=== PATIENT | male | born 1995 | race Hispanic/Latino ===

== ENCOUNTER 2022-09-01 22:23 | Emergency (ER) | payer OTHER, SELFPAY ==
[2022-09-01 22:27] VITALS: BP 151/101; PULSE 101; RESP 21; TEMP 36.9; O2SAT 98; BMI 161.7
--- NOTE | 2022-09-01 22:30 | DI.RAD.S_ITS ---
PROCEDURE: XR CHEST 1V INDICATIONS: chest pain TECHNIQUE: One view of the chest was acquired. COMPARISON: None. FINDINGS: Surgical changes and devices: None. Lungs and pleura: Lungs are difficult to accurately assess due to prominently reduced inspiratory volume. No pleural effusions or pneumothorax. Mediastinum: Mediastinal contours appear normal. Heart size is normal. Bones and chest wall: No suspicious bony lesions. Overlying soft tissues appear unremarkable. IMPRESSION: Prominently reduced inspiratory volume, no acute disease when this is taken into account. Dictated by: Elmo Penn M.D. on 09/01/2022 at 22:47 Approved by: Elmo Penn M.D. on 09/01/2022 at 22:48
[2022-09-01] MEDS: ASPIRIN 81 MG CHEW TAB 324 MG PO (22:44)
[2022-09-01 23:04] VITALS: BP 138/86; PULSE 100; O2SAT 98
[2022-09-01 23:18] LABS: Add Manual Diff / Slide Review NO; Basophils Absolute Auto 100 /uL (0-100); Basophils Percent Auto 0.7 % (0-2); Eosinophils Absolute Auto 300 /uL (0-450); Eosinophils Percent Auto 2.8 % (2-4); Hematocrit 44.5 % (41-53); Hemoglobin 15.8 g/dL (13.5-17.5); INR 1.1 (0.9-1.3); Lymphocytes Absolute Auto 2000 /uL (1100-4500); Lymphocytes Percent Auto 20.5 % (25-40); Mean Corpuscular HGB Conc 35.5 % (30-36); Mean Corpuscular Hemoglobin 30.6 PG (26-34); Mean Corpuscular Volume 86.3 fL (80-100); Monocytes Absolute Auto 500 /uL (0-900); Monocytes Percent Auto 5.5 % (3-14); Neutrophils Absolute Auto 6800 /uL (1500-7000); Neutrophils Percent Auto 70.5 % (50-75); Platelet Count 261 X10^3/uL (150-400); Prothrombin Time 12.9 SECONDS (10.1-12.7); Red Blood Cell Count 5.15 X10^6/uL (4.5-5.9); Red Cell Distribution Width 12.8 % (11.6-14.8); White Blood Cell Count 9.6 X10^3/uL (4.5-11.0)
[2022-09-01 23:21] LABS: PTT Partial Thromboplastin Tim 41 SECONDS (26-36)
[2022-09-01 23:23] LABS: Alanine Aminotransferase 140 IU/L (<50); Albumin 4.6 g/dL (3.5-5.0); Albumin Globulin Ratio 1.3 (1.0-2.8); Alkaline Phosphatase 99 U/L (38-126); Aspartate Aminotransferase 76 IU/L (17-59); BUN Creatinine Ratio 8.9 (6-22); Bilirubin Total 1.9 mg/dL (0.2-1.3); Blood Urea Nitrogen 7 mg/dL (9-20); Calcium 9.4 mg/dL (8.4-10.2); Carbon Dioxide 30 mmol/L (22-32); Chloride 99 mmol/L (98-107); Creatine Kinase 68 U/L (55-170); Estimated Glomerular Filt Rate > 60 mL/min (>60); Globulin 3.6 g/dL (1.7-4.1); Glucose 149 mg/dL (70-100); HEMOLYSIS < 15 (0-50); Lipase 95 U/L (23-300); Magnesium 1.8 mg/dL (1.6-2.3); Potassium 3.9 mmol/L (3.4-5.1); Sodium 138 mmol/L (137-145); Total Protein 8.2 g/dL (6.3-8.2)
[2022-09-01 23:30] VITALS: BP 158/85; PULSE 93; RESP 23; O2SAT 97
[2022-09-01 23:34] LABS: Troponin I < 0.012 ng/mL (0.01-0.034)
[2022-09-02] VITALS (8 sets, daily range): BP systolic 135–164; BP diastolic 59–87; PULSE 87–99; RESP 16–19; TEMP 36.5; O2SAT 96–99
--- NOTE | 2022-09-02 00:52 | DI.CT.S_ITS ---
PROCEDURE: CT ABDOMEN PELVIS W CON INDICATIONS: IV contrast only abdominal pain TECHNIQUE: After the administration of intravenous contrast, axial sections acquired from the lung bases to the pubic symphysis. Coronal and sagittal reformats were performed. For radiation dose reduction, the following was used: automated exposure control, adjustment of mA and/or kV according to patient size. COMPARISON: None. FINDINGS: Image quality: Excellent. Lung bases: Unremarkable. Heart: No significant findings. ABDOMEN: Liver: Fatty infiltrated diffusely, and moderately enlarged with a craniocaudad length of 24.6 cm.. Gallbladder: Normal. Biliary ducts: Unremarkable. Pancreas: Unremarkable. Spleen: Splenomegaly is present with the craniocaudad length of the spleen measuring up to 13.7 cm. Adrenal Glands: Unremarkable. Kidneys and Ureters: Unremarkable. Stomach and Bowel: Stomach, small bowel loops, and colon are unremarkable. Peritoneum: No abnormal intraperitoneal fluid. No free air. Ventral Wall: No hernias. Abdominal Nodes: No retroperitoneal or mesenteric adenopathy by size criteria. Vessels: Aorta and inferior vena cava are normal in size. PELVIS: Pelvic Organs: Unremarkable. Bladder: Unremarkable. Pelvic Nodes: No enlarged lymph nodes. Miscellaneous: No hernias are seen. Bones: Unremarkable. IMPRESSION: Hepatosplenomegaly, with fatty infiltration throughout the liver. No varices or ascites is associated. Dictated by: Elmo Penn M.D. on 09/02/2022 at 1:41 Approved by: Elmo Penn M.D. on 09/02/2022 at 1:43
--- NOTE | 2022-09-02 00:52 | DI.CT.S_ITS ---
PROCEDURE: CT ANGIO CHEST PE PROTOCOL INDICATIONS: Chest pain TECHNIQUE: After the administration of intravenous contrast, 2 mm thick sections acquired from the pulmonary apices to the posterior costophrenic angles. 3-dimensional maximum intensity projection (MIP) coronal and sagittal reformats were then acquired through the thorax. For radiation dose reduction, the following was used: automated exposure control, adjustment of mA and/or kV according to patient size. COMPARISON: None. FINDINGS: Image quality: Excellent. Pulmonary arteries: Pulmonary arteries are normal in size, and demonstrate no intraluminal filling defects to suggest central pulmonary embolism. Lungs and pleura: Lungs are clear. No pleural effusions or pneumothorax. Central and peripheral airways are patent. Mediastinum: Heart size is normal, without pericardial effusion. No mediastinal or hilar adenopathy. Thoracic aorta is normal in caliber and enhancement. Esophagus is normal in caliber, without hiatal hernia. Bones and chest wall: No suspicious bony lesions. Ribs and thoracic spine appear intact throughout. Thyroid gland appears normal. No axillary or supraclavicular adenopathy. Abdomen: Visualized upper abdominal solid organs appear normal in the early arterial phase of enhancement except at the liver which appears diffusely fatty infiltrated to a moderate degree. IMPRESSION: Source of midsternal chest pain is not found, but there is fatty infiltration throughout the liver that is moderate in severity. No varices or ascites is associated. Dictated by: Elmo Penn M.D. on 09/02/2022 at 1:39 Approved by: Elmo Penn M.D. on 09/02/2022 at 1:41
--- NOTE | 2022-09-02 00:53 | ED_ITS ---
HPI - Chest Pain General Chief Complaint: Chest Pain Stated Complaint: Chest pain and lightheadness Time Seen by Provider: 09/02/22 00:03 Source: patient Mode of arrival: Ambulatory Limitations: no limitations History of Present Illness HPI narrative: Patient here for complaints of reproducible substernal chest pain sharp pain with deep breath for the past 2 days. Patient seen at [facility] Emergency Department in the last 48 hours for the same complaint. EKG and chest x-ray and troponin are reassuring. Patient has low heart risk factors. Blood pressure has improved since arrival. Patient denies any recent illness no cough cold congestion fever chills. Patient denies any family history of heart attack strokes blood clots in legs or lungs or aneurysms in the chest or dissection. Patient has low heart risk factors. He does smoke. Heart score of 1. Patient is in no distress at this time. Denies any nausea sweating or dyspnea. No syncope. No dizziness. Patient states he has been told in the past he has elevated liver enzymes. Denies any regular alcohol use. Patient states not been worked up for this elevated liver enzymes. Patient denies any abdominal pain Related Data Previous Rx's Medication Instructions Recorded ibuprofen 800 mg tablet 800 mg PO Q8H PRN pain #20 tabs 09/02/22 Allergies Allergy/AdvReac Type Severity Reaction Status Date / Time No Known Drug Allergies Allergy Verified 09/01/22 22:27 Review of Systems Review of Systems Narrative: GENERAL: negative chills, fatigue, malaise, fever, sweats. HEENT: negative sinus pain, ear pain, sore throat RESPIRATORY: negative dyspnea, cough CARDIOVASCULAR: Positive chest pain, negative palpitations GASTROINTESTINAL: negative nausea, vomiting, abdominal pain : negative dysuria, frequency, hematuria MUSCULOSKELETAL: negative muscle or bony pain SKIN: negative rash, skin lesions NEUROLOGIC: negative weakness, numbness ROS Unobtainable: All systems reviewed & are unremarkable except as noted in HPI and below Patient History Social History Smoking Status: Current every day smoker Smoking Status: Current every day smoker Substance Use Type: does not use Exam Narrative Exam Narrative: GENERAL: in no distress, not toxic not dyspneic HEAD: Normocephalic. EYES: Pupils equal round ENT: Mucous membranes moist. NECK: Trachea midline. CARDIOVASCULAR: Regular rate and rhythm without murmurs RESPIRATORY: Clear to auscultation. Breath sounds equal bilaterally. No wheezes, rales, or rhonchi. Patient does have reproducible substernal pain with deep breath. GASTROINTESTINAL: Abdomen soft, non-tender EXTREMITIES: No gross deformities. BACK: No flank tenderness. NEURO: AOx4. SKIN: Warm and dry PSYCH: Not anxious, is cooperative Initial Vital Signs Initial Vital Signs: Vital Signs Temperature 98.4 F 09/01/22 22:27 Pulse Rate 101 H 09/01/22 22:27 Respiratory Rate 21 09/01/22 22:27 Blood Pressure 151/101 H 09/01/22 22:27 Pulse Oximetry 98 09/01/22 22:27 Oxygen Delivery Method Room Air 09/01/22 22:27 Scores HEART Score Heart Score history: Slightly Suspicious Heart Score EKG: Normal Heart Score Age: < 45 years old Heart Score risk factors: 1-2 risk factors Heart Score troponin: < or = to normal limit Heart Score Total: 1 Course Orders Ordered: ED Orders 09/01/22 22:30 XR chest 1V Stat EKG-12 Lead Stat 09/01/22 23:00 Complete Blood Count AUTO DIFF Stat Comprehensive Metabolic Panel Stat Lipase Stat Magnesium Stat PTT Partial Thromboplastin Jayme Stat Prothrombin Time INR Stat Troponin & CK Cardiac Panel Stat 09/02/22 00:52 CT abdomen pelvis w con Stat CT angio chest PE protocol Stat Discontinued Medications Aspirin (Aspirin 81 Mg Chew Tab) 324 mg PO NOW ONE Stop: 09/01/22 22:31 Last Admin: 09/01/22 22:44 Dose: 324 mg Documented By: CASANDRA Sodium Chloride (Normal Saline 0.9%) 1,000 mls @ 1,000 mls/hr IV BOLUS ONE Stop: 09/02/22 01:51 Last Infusion: 09/02/22 02:06 Dose: 0 mls/hr Documented By: Admin: 09/02/22 01:00 Dose: 1,000 mls/hr Documented By: RAJ Ketorolac Tromethamine (Ketorolac 30 Mg/Ml Vial) 15 mg IV NOW ONE Stop: 09/02/22 01:01 Last Admin: 09/02/22 01:21 Dose: 15 mg Documented By: RAJ Vital Signs Vital signs: Vital Signs - 8 hr 09/01/22 22:27 09/01/22 23:04 09/01/22 23:04 Temperature 98.4 F Pulse Rate 101 H 100 H Respiratory Rate 21 Blood Pressure 151/101 H 138/86 Pulse Oximetry 98 98 Oxygen Delivery Method Room Air 09/01/22 23:30 09/01/22 23:30 09/02/22 00:00 Temperature Pulse Rate 93 H Respiratory Rate 23 Blood Pressure 158/85 H 152/77 H Pulse Oximetry 97 Oxygen Delivery Method 09/02/22 00:00 09/02/22 00:30 09/02/22 00:30 Temperature Pulse Rate 91 H 99 H Respiratory Rate 17 18 Blood Pressure 153/87 H Pulse Oximetry 97 99 Oxygen Delivery Method 09/02/22 01:00 09/02/22 01:00 09/02/22 01:30 Temperature Pulse Rate 98 H 95 H Respiratory Rate 18 19 Blood Pressure 151/84 H Pulse Oximetry 97 96 Oxygen Delivery Method 09/02/22 01:31 09/02/22 01:31 09/02/22 02:00 Temperature Pulse Rate 95 H Respiratory Rate 17 Blood Pressure 150/59 H 135/79 Pulse Oximetry 96 Oxygen Delivery Method 09/02/22 02:00 09/02/22 02:30 09/02/22 02:30 Temperature Pulse Rate 87 91 H Respiratory Rate 16 19 Blood Pressure 164/84 H Pulse Oximetry 98 96 Oxygen Delivery Method 09/02/22 02:49 Temperature 97.7 F Pulse Rate Respiratory Rate Blood Pressure Pulse Oximetry Oxygen Delivery Method MDM - Chest Pain Lab Data 09/01/22 23:00 09/01/22 23:00 Labs: Lab Results 09/01/22 09/01/22 09/01/22 Range/Units 23:00 23:00 23:00 WBC 9.6 (4.5-11.0) X10^3/uL RBC 5.15 (4.5-5.9) X10^6/uL Hgb 15.8 (13.5-17.5) g/dL Hct 44.5 (41-53) % MCV 86.3 (80-100) fL MCH 30.6 (26-34) PG MCHC 35.5 (30-36) % RDW 12.8 (11.6-14.8) % Plt Count 261 (150-400) X10^3/uL Neut % (Auto) 70.5 (50-75) % Lymph % (Auto) 20.5 L (25-40) % [place] % (Auto) 5.5 (3-14) % Eos % (Auto) 2.8 (2-4) % Baso % (Auto) 0.7 (0-2) % Neut # (Auto) 6800 (0551-4757) /uL Lymph # (Auto) 2000 (7692-7729) /uL [place] # (Auto) 500 (0-900) /uL Eos # (Auto) 300 (0-450) /uL Baso # (Auto) 100 (0-100) /uL PT 12.9 H (10.1-12.7) SECONDS INR 1.1 (0.9-1.3) APTT 41 H (26-36) SECONDS Sodium 138 (137-145) mmol/L Potassium 3.9 (3.4-5.1) mmol/L Chloride 99 (98-107) mmol/L Carbon Dioxide 30 (22-32) mmol/L BUN 7 L (9-20) mg/dL Creatinine 0.79 (0.66-1.25) mg/dL Estimated GFR > 60 (>60) mL/min BUN/Creatinine Ratio 8.9 (6-22) Glucose 149 H (70-100) mg/dL Calcium 9.4 (8.4-10.2) mg/dL Magnesium 1.8 (1.6-2.3) mg/dL Total Bilirubin 1.9 H (0.2-1.3) mg/dL AST 76 H (17-59) IU/L ALT 140 H (<50) IU/L Alkaline Phosphatase 99 (38-126) U/L Total Creatine Kinase 68 (55-170) U/L Troponin I < 0.012 (0.01-0.034) ng/mL Total Protein 8.2 (6.3-8.2) g/dL Albumin 4.6 (3.5-5.0) g/dL Globulin 3.6 (1.7-4.1) g/dL Albumin/Globulin Ratio 1.3 (1.0-2.8) Lipase 95 (23-300) U/L Imaging Data Chest x-ray: Radiologist's Impression: [address] [address] XRay Report Signed Patient: Ai Calzada MR#: [id number] : 1995 Acct:[id number] Age/Sex: 27 / M Date of Service: 09/01/22 Loc: ED Accession Number: [id number] ?? Procedure: XR chest 1V Ordering Provider: Kevin Hanson MD PROCEDURE:? XR CHEST 1V ? INDICATIONS:? chest pain ? TECHNIQUE:? One view of the chest was acquired.? ? COMPARISON:? None. ? FINDINGS:? ? Surgical changes and devices:? None.? ? Lungs and pleura:? Lungs are difficult to accurately assess due to prominently reduced inspiratory volume.? No pleural effusions or pneumothorax.? ? Mediastinum:? Mediastinal contours appear normal.? Heart size is normal.? ? Bones and chest wall:? No suspicious bony lesions.? Overlying soft tissues appea r unremarkable.? ? IMPRESSION:? Prominently reduced inspiratory volume, no acute disease when this is taken into account. ? ? Dictated by: Elmo Penn M.D. on 09/01/2022 at 22:47 ? ? Approved by: Elmo Penn M.D. on 09/01/2022 at 22:48 ? CT scan - chest: Radiologist's Impression: [place] [address] CT Scan Report Signed Patient: Ai Calzada MR#: [id number] : 1995 Acct:[id number] Age/Sex: 27 / M Date of Service: 09/02/22 Loc: ED Accession Number: [id number] ?? Procedure: CT angio chest PE protocol Ordering Provider: Kevin Hanson MD PROCEDURE:? CT ANGIO CHEST PE PROTOCOL ? INDICATIONS:? Chest pain ? TECHNIQUE:? After the administration of intravenous contrast, 2 mm thick sections acquired from the pulmonary apices to the posterior costophrenic angles.? 3-dimensional maximum intensity projection (MIP) coronal and sagittal reformats were then acquired through the thorax.? For radiation dose reduction, the following was used:? automated exposure control, adjustment of mA and/or kV according to patient size.? ? COMPARISON:? None. ? FINDINGS:? Image quality:? Excellent.? ? Pulmonary arteries:? Pulmonary arteries are normal in size, and demonstrate no intraluminal filling defects to suggest central pulmonary embolism.? ? Lungs and pleura:? Lungs are clear.? No pleural effusions or pneumothorax.? Central and peripheral airways are patent.? ? Mediastinum:? Heart size is normal, without pericardial effusion.? No mediastinal or hilar adenopathy.? Thoracic aorta is normal in caliber and enhancement.? Esophagus is normal in caliber, without hiatal hernia.? ? Bones and chest wall:? No suspicious bony lesions.? Ribs and thoracic spine appear intact throughout.? Thyroid gland appears normal.? No axillary or supraclavicular adenopathy.? ? Abdomen:? Visualized upper abdominal solid organs appear normal in the early arterial phase of enhancement except at the liver which appears diffusely fatty infiltrated to a moderate degree.? ? IMPRESSION:? Source of midsternal chest pain is not found, but there is fatty infiltration throughout the liver that is moderate in severity.? No varices or ascites is associated. ? ? Dictated by: Elmo Penn M.D. on 09/02/2022 at 1:39 ? ? Approved by: Elmo Penn M.D. on 09/02/2022 at 1:41 ? CT scan - abdomen/pelvis: Radiologist's Impression: [place] [address] CT Scan Report Signed Patient: Ai Calzada MR#: [id number] : 1995 Acct:[id number] Age/Sex: 27 / M Date of Service: 09/02/22 Loc: ED Accession Number: [id number] ?? Procedure: CT abdomen pelvis w con Ordering Provider: Kevin Hanson MD PROCEDURE:? CT ABDOMEN PELVIS W CON ? INDICATIONS:? IV contrast only abdominal pain ? TECHNIQUE:? After the administration of intravenous contrast, axial sections acquired from the lung bases to the pubic symphysis.? Coronal and sagittal reformats were performed.? For radiation dose reduction, the following was used:? automated exposure control, adjustment of mA and/or kV according to patient size.? ? COMPARISON:? None. ? FINDINGS:? Image quality:? Excellent.? ? Lung bases:? Unremarkable. Heart:? No significant findings. ? ABDOMEN: Liver:? Fatty infiltrated diffusely, and moderately enlarged with a craniocaudad length of 24.6 cm..? ? Gallbladder:? Normal.? ? Biliary ducts:? Unremarkable.? ? Pancreas:? Unremarkable.? ? Spleen:? Splenomegaly is present with the craniocaudad length of the spleen alek uring up to 13.7 cm.? ? Adrenal Glands:? Unremarkable.? ? Kidneys and Ureters:? Unremarkable.? ? ? Stomach and Bowel:? Stomach, small bowel loops, and colon are unremarkable.? Peritoneum:? No abnormal intraperitoneal fluid.? No free air.? ? Ventral Wall: ? No hernias.? Abdominal Nodes:? No retroperitoneal or mesenteric adenopathy by size criteria.? Vessels:? Aorta and inferior vena cava are normal in size.? ? PELVIS: Pelvic Organs:? Unremarkable.? ? Bladder:? Unremarkable.? ? Pelvic Nodes: No enlarged lymph nodes.? Miscellaneous: No hernias are seen. ? ? ? Bones:? Unremarkable.? IMPRESSION:? Hepatosplenomegaly, with fatty infiltration throughout the liver.? No varices or ascites is associated. ? ? Dictated by: Elmo Penn M.D. on 09/02/2022 at 1:41 ? ? Approved by: Elmo Penn M.D. on 09/02/2022 at 1:43 ? MDM Narrative Medical decision making narrative: Patient here for complaints of reproducible substernal chest pain sharp pain with deep breath for the past 2 days. Patient seen at [facility] Emergency Department in the last 48 hours for the same complaint. EKG and chest x-ray and troponin are reassuring. Patient has low heart risk factors. Blood pressure has improved since arrival. Patient denies any recent illness no cough cold congestion fever chills. Patient denies any family history of heart attack strokes blood clots in legs or lungs or aneurysms in the chest or dissection. Patient has low heart risk factors. He does smoke. Heart score of 1. Patient is in no distress at this time. Denies any nausea sweating or dyspnea. No syncope. No dizziness. Patient states he has been told in the past he has elevated liver enzymes. Denies any regular alcohol use. Patient states not been worked up for this elevated liver enzymes. Patient denies any abdominal pain After history and exam CBC CMP lipase chest x-ray EKG CT chest Toradol normal saline CT abdomen pelvis [facility] CC: Chest pain Complicating co-morbidities: Patient does smoke Data collected from: Patient Medical records reviewed: ER records from outside hospital yesterday Differential considered: Includes but not limited to STEMI non-STEMI unstable angina stable angina costochondritis pleurisy pancreatitis cholecystitis aortic dissection pulmonary embolism Exam documented above, pertinent findings include: Reproducible sternal pain with deep breath Lab Test results independently reviewed as above. Pertinent findings: WBC 9.6 AST 76 ALT 140 total bilirubin 1.9 troponin less than 0.012 lipase 95 Independently reviewed EKG sinus tachycardia rate [address] elevation or depression Imaging studies independently reviewed: Chest x-ray no acute finding CT chest CT abdomen pelvis no acute finding Consultations: None indicated at this time Treatments: Normal saline Toradol Re-evaluations: 2:42 a.m.. at bedside now. Patient had total chest pain relief after Toradol. This is reassuring. Likely pleurisy, reviewed results with patient and . At this time laboratory workup has been reassuring just as it was with the previous emergency department. He states he is in process of eating a [facility] and will follow up for blood pressure re-evaluation. Retu rn precautions reviewed with him. He desires discharge home. Fatty liver on CT imaging is not new to him he states. He has been informed of that in the past. Discussion: Appropriate for discharge home. Exam and laboratory studies imaging workup is reassuring just as it was with previous emergency department. Patient does have low heart risk factors. Heart score of 1. Blood pressure noted but did improve during course of stay. He will follow up with primary care for re-evaluation of his blood pressure. Nontoxic discharge. Return precautions reviewed with patient and . They desire discharge home. No repeat troponin indicated at this time. Patient had troponin at previous em ergency department and tonight as well Diagnosis: Pleurisy Discharge Plan Departure Patient Disposition: Home Clinical Impression: Pleurisy Instructions: DI for Pleurisy, DI for Chest Pain Activity Restrictions/Additional Instructions: Please see your [facility] as planned. At this time laboratory studies imaging EKG are reassuring as they were at the previous emergency department. You do have low heart risk factors. 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 Return if worse if any questions or concerns. Discomfort your having is likely pleurisy. However, return immediately if increased pain or any changes in your symptoms. Prescriptions: New ibuprofen 800 mg tablet 800 mg PO Q8H PRN (Reason: pain) Qty: 20 0RF Stand Alone Forms: Patient Portal/API
[2022-09-02] MEDS: SODIUM CHLORIDE 0.9% 1,000 ML 1000 ML IV (01:00)
[2022-09-02] MEDS: KETOROLAC 30 MG/ML VIAL 15 MG IV (01:21)
== END 2022-09-02 02:51 | disposition home or self-care (01) ==
PROVIDERS: Emergency Provider Emergency Medicine
DX: R09.1 Pleurisy (principal); R07.9 Chest pain, unspecified
CPT/HCPCS: 36415; 71045; 71275; 74177; 80053; 82550; 83690; 83735; 84484; 85025; 85610; 85730; 93005; 96374; 99284; J1885; Q9967